=== PATIENT | male | born 1970 | race Caucasian/White ===

== ENCOUNTER 2018-01-02 21:38 | Emergency (ER) | payer BC ==
[~2018-01-02] VITALS: Ht 180.3 cm; Wt 111.1 kg
[~2018-01-02 21:38] MED LIST: Z.0.ADDERALL 30 MG30 PO; Z.0.KLONOPIN1 MG PO
--- OUTSIDE RECORDS SUMMARY | 2018-01-02 21:41 | XMS REPORT | Clinical Summary ---
Author Author [facility] Address Unknown Phone Unavailable Care Team Providers Care Exterminator Termite Name Role Phone Tom Begum MD PCP Allergies No Known Allergies Current Medications Prescription Sig. Disp. Refills Start End Date Status Date lisinopril Take 5 mg by mouth daily. Active (PRINIVIL,ZESTRIL) 5 mg tablet dextroamphetamine-ampheta Take 30 mg by mouth 3 Active mine (ADDERALL) 30 mg (three) times a day. tablet clonAZEPAM (KlonoPIN) 1 Take 1 mg by mouth 2 Active MG tablet (two) times a day as needed for seizures. Active Problems Problem Noted Date Contusion of left hand 09/12/2017 Extensor tendon rupture of hand 04/01/2017 Extensor tendon disruption 03/30/2017 Encounters Date Type Specialty Care Team Description 11/28/2017 Telephone Orthopedic Surgery Delaney Wylie MD 11/08/2017 Office Visit Orthopedic Surgery Delaney Wylie Contusion of left hand, MD Kavitha subsequent encounter (Primary Dx) 10/24/2017 Telephone Orthopedic Surgery Delaney Wylie MD 10/14/2017 Office Visit Orthopedic Surgery Delaney Wylie Contusion of left handKavitha MD subsequent encounter (Primary Dx) 09/09/2017 Office Visit Orthopedic Surgery Delaney Wylie Contusion of left handKavitha MD subsequent encounter (Primary Dx) 09/05/2017 Hospital Radiology Delaney Wylie Left hand pain Encounter MD Kavitha 08/24/2017 Office Visit Orthopedic Surgery Delaney Wylie Left hand pain (Primary MD Kavitha Dx) 08/24/2017 Procedure Pass Radiology 07/13/2017 Office Visit Orthopedic Surgery Delaney Wylie Rupture of extensor MD Kavitha tendon of left hand, initial encounter (Primary Dx) 05/31/2017 Office Visit Orthopedic Surgery Delaney Wylie Extensor tendon rupture MD Kavitha of hand, left, initial encounter (Primary Dx) 05/03/2017 Office Visit Orthopedic Surgery Delaney Wylie Extensor tendon rupture MD Kavitha of hand, left, initial encounter (Primary Dx) 05/03/2017 Orders Only Orthopedic Surgery ProviderMagalys MD 04/19/2017 Office Visit Orthopedic Surgery Delaney Wylie Extensor tendon rupture MD Kavitha of hand, left, initial encounter (Primary Dx) 04/05/2017 Hospital General Surgery Delaney Wylie Encounter MD Kavitha 04/05/2017 Anesthesia General Surgery Jonathan Jordan Event MD 04/05/2017 Procedure Pass General Surgery 04/05/2017 Surgery General Surgery Delaney Wylie REPAIR, TENDON, HAND, MD Kavitha EXTENSOR - LEFT SIDE 04/01/2017 Hospital Radiology Delaney Wylie Preop testing Encounter MD Kavitha 04/01/2017 Pre-Admit Pre-Admission Testing Delaney Wylie Preop testing (Primary Testing MD Kavitha Dx) Appointment 04/01/2017 Office Visit Orthopedic Surgery Delaney Wylie Extensor tendon rupture MD Kavitha of hand, left, initial encounter (Primary Dx) 03/30/2017 Office Visit Orthopedic Surgery Delaney Wylie Left hand pain (Primary MD Kavitha Dx); Nonintractable headache, unspecified chronicity pattern, unspecified headache type; Extensor tendon disruption after 01/01/2017 Family History Medical History Relation Name Comments No Known Problems Brother Arthritis Father Alzheimer's disease Mother Relation Name Status Comments Brother Alive Father Alive Mother Alive Social History Tobacco Use Types Packs/Day Years Used Date Never Smoker Smokeless Tobacco: Never Used Alcohol Use Drinks/Week oz/Week Comments Yes 2 Cans of Open can of beer take two drinks , pour out beer Sex Assigned at Date Recorded Not on file Last Filed Vital Signs Vital Sign Reading Time Taken Blood Pressure 115/70 04/05/2017 12:10 PM CDT Pulse 87 04/05/2017 12:10 PM CDT Temperature 36.5 C (97.7 F) 04/05/2017 12:05 PM CDT Respiratory Rate 13 04/05/2017 12:10 PM CDT Oxygen Saturation 95% 04/05/2017 12:10 PM CDT Inhaled Oxygen - - Concentration Weight 107 kg (235 lb 14.3 oz) 11/08/2017 2:20 PM [employer] Height 177.8 cm (5' 10") 11/08/2017 2:20 PM [employer] Body Mass Index 33.85 11/08/2017 2:20 PM [employer] Plan of Treatment Health Maintenance Due Date Last Done Comments INFLUENZA VACCINE 05/10/2017 Procedures Procedure Name Priority Date/Time Associated Diagnosis Comments CA AN ELECTIVE Routine 04/05/2017 SUPRAGLOTTIC AIRWAY 10:20 AM CDT Procedure Note - Anderson Gaines MD - 04/05/2017 10:20 AM CDT Airway Date/Time: 04/05/2017 10:18 AM Performed by: ANDERSON GAINES Authorized by: ANDERSON GAINES Location: OR Urgency: Elective Anesthesio logist: ANDERSON GAINES Performed by: anesthesisolange logismeg Preoxygena jaylin with 100% O2: Yes Mask Ventilatio n: Easy mask Final Airway Type: Supraglott ic airway Final LMA: Classic LMA Size: 5 Number of Attempts at Approach: 1 REPAIR, TENDON, HAND, 04/05/2017 Extensor tendon rupture EXTENSOR - LEFT SIDE 10:00 AM CDT of hand, left, initial encounter Special Needs PRE-OP VISIT ON 04-01-2017 AN ADD-ONBMI: 32.37HAND TABLE4.0 LOOPED SUPRAMID after 01/01/2017 Results * MRI Upper Extremity Wo Contrast Left (09/05/2017 8:51 AM) Only the most recent of 2 results within the time period is included. Specimen Performing Laboratory [facility] [id number] [place] [address] Narrative EXAMINATION:MRI UPPER EXTREMITY WO CONTRAST LEFT CLINICAL HISTORY: M79.642 Pain in left hand, Hand Pain, trauma to hand with many prior injuriesxrays unchanged from priorpt states unable to extend fingers COMPARISON:August 24, 2017 x-ray FINDINGS: 1.Tendons: There is irregularity of the fifth extensor tendon at the CMC joint where there has been prior surgery, but an obvious discontinuity or fluid collection is not identified. The ECU tendon attachment is also irregular, but probably intact. 2.Bone marrow: Pronounced degenerative narrowing and dorsal spurring involving the third carpal-metacarpal joint space with less pronounced changes in the second and fourth CMC joints. No bone marrow edema identified to suggest an acute osseous abnormality. 3.Soft tissue: Edema and heterogeneity of the abductor digiti minimi muscle suggest some chronic denervation changes. No other focal abnormality. 4.Carpal tunnel: Study is not centered for evaluation of the carpal tunnel. Projection of flexor tendons are and lateral to the location of the hamate are presumably related to prior operative changes in the flexor retinaculum. 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 Postoperative changes involving fifth extensor tendons, without obvious discontinuity. Denervation changes involving ADM muscle. [id number] Procedure Note Hm Interface, Radiology Results Incoming - 09/05/2017 9:07 AM [employer] EXAMINATION: MRI UPPER EXTREMITY WO CONTRAST LEFT CLINICAL HISTORY: M79.642 Pain in left hand, Hand Pain, trauma to hand with many prior injuries xrays unchanged from prior pt states unable to extend fingers COMPARISON: August 24, 2017 x-ray FINDINGS: 1. Tendons: There is irregularity of the fifth extensor tendon at the CMC joint where there has been prior surgery, but an obvious discontinuity or fluid collection is not identified. The ECU tendon attachment is also irregular, but probably intact. 2. Bone marrow: Pronounced degenerative narrowing and dorsal spurring involving the third carpal-metacarpal joint space with less pronounced changes in the second and fourth CMC joints. No bone marrow edema identified to suggest an acute osseous abnormality. 3. Soft tissue: Edema and heterogeneity of the abductor digiti minimi muscle suggest some chronic denervation changes. No other focal abnormality. 4. Carpal tunnel: Study is not centered for evaluation of the carpal tunnel. Projection of flexor tendons are and lateral to the location of the hamate are presumably related to prior operative changes in the flexor retinaculum. 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 Postoperative changes involving fifth extensor tendons, without obvious discontinuity. Denervation changes involving ADM muscle. [id number] * XR Hand 3+ Vw Left (08/24/2017 1:45 PM) Only the most recent of 2 results within the time period is included. Specimen Performing Laboratory [facility] [address] [place] [address] Narrative 3 views left hand: Changes consistent with prior injuries are present including ossific body at the base of the fifth metacarpal and abnormal alignment of mid and proximal carpal rows. No obvious new fractures. * XR Chest 2 Vw (04/01/2017 2:45 PM) Specimen Performing Laboratory [facility] [address] [place] [address] Narrative EXAMINATION:XR CHEST 2 VW CLINICAL HISTORY: Preoperative evaluation COMPARISON:None IMPRESSION: No active disease in the chest. Lungs are clear. There is linear atelectasis or scarring in the right midlung. Cardiomediastinal silhouette is within normal limits. No effusion or pneumothorax noted. Visualized osseous structures are intact. [facility]-[id number] Procedure Note Hm Interface, Radiology Results Incoming - 04/01/2017 3:32 PM CDT EXAMINATION: XR CHEST 2 VW CLINICAL HISTORY: Preoperative evaluation COMPARISON: None IMPRESSION: No active disease in the chest. Lungs are clear. There is linear atelectasis or scarring in the right midlung. Cardiomediastinal silhouette is within normal limits. No effusion or pneumothorax noted. Visualized osseous structures are intact. [facility]-[id number] * Estimated GFR (04/01/2017 1:54 PM) Component Value Ref Range GFR Non Af Amer 90 mL/min/1.73 m2 GFR Af Amer >90 mL/min/1.73 m2 Comment: Chronic kidney disease: <60 mL/min/1.73m2 Kidney failure: <15 mL/min/1.73m2 The estimated GFR is calculated from the IDMS-traceable Modification of Diet in Renal Disease Equation. The accuracy of the calculation is poor when the creatinine is normal. Calculated values >90 mL/min/1.73m2 are not reported. This equation has not been validated in children (<18 years), women, the elderly (>70 years), or ethnic groups other than Caucasians and Americans. Specimen Performing Laboratory Plasma specimen [facility] DEPARTMENT OF PATHOLOGY AND GENOMIC MEDICINE [address] [place] [address] * Urinalysis, automated with microscopy (04/01/2017 1:54 PM) Component Value Ref Range Color, UA Straw Appearance, UA Clear Specific gravity, UA 1.017 1.001 - 1.035 pH, UA 5.0 5.0 - 8.5 Protein, UA Negative Negative Glucose, UA Negative Negative Ketones, UA Negative Negative Bilirubin, UA Negative Negative Blood, UA Negative Negative Nitrite, UA Negative Negative Urobilinogen, UA Negative <2.0 Leukocyte esterase, UA Negative Negative WBC, UA 1 0 - 1 /HPF RBC, UA 3 (H) 0 - 1 /HPF Bacteria, UA None seen None seen Yeast, UA None seen Yeast with pseudohyphae, None seen UA Specimen Performing Laboratory Urine [facility] DEPARTMENT OF PATHOLOGY AND GENOMIC MEDICINE [address] [place] [address] * Partial thromboplastin time, activated (04/01/2017 1:54 PM) Component Value Ref Range PTT 26.0 23.0 - 36.0 sec Comment: PTT therapeutic range for unfractionated heparin is 61.0-112.0 seconds which corresponds to Anti-Xa 0.3-0.7 U/ml. Note: Change in Panic Value The PTT Panic Value is changing from 110 sec. to 100 sec. due to new instrumentation and reagents. Correlation studies have been performed to validate this result. Specimen Performing Laboratory Blood [facility] DEPARTMENT OF PATHOLOGY AND GENOMIC MEDICINE [address] [place] [address] * Prothrombin time with INR (04/01/2017 1:54 PM) Component Value Ref Range Prothrombin time 12.6 12.0 - 15.0 sec INR 0.94 0.92 - 1.12 Comment: For patients on anticoagulant therapy, reference ranges below: Indication: INR Value Treatment of Venous Thrombosis, 2.0-3.0 pulmonary emboli, or prophylaxis of a venous thrombosis, or systemic emboli. High dose, high risk patients 3.0-4.5 with mechanical valves. NOTE: INR values over 3.0 are sometimes associated with gastrointestinal hemorrhage, especially values over 4.0. Specimen Performing Laboratory Blood [facility] DEPARTMENT OF PATHOLOGY AND GENOMIC MEDICINE [address] [place] [address] * CBC with platelet and differential (04/01/2017 1:54 PM) Component Value Ref Range WBC 5.7 4.2 - 11.0 k/uL RBC 4.93 4.04 - 5.86 m/uL HGB 15.4 13.0 - 17.3 g/dL HCT 45.5 (H) 34.0 - 45.0 % MCV 92.3 80.0 - 98.0 fL MCH 31.2 27.0 - 34.0 pg MCHC 33.8 31.5 - 36.5 g/dL RDW - SD 46.5 37.0 - 51.0 fL MPV 10.8 (H) 7.4 - 10.4 fL Platelet count 224 150 - 400 k/uL Nucleated RBC 0.00 /100 WBC Neutrophils 62.9 36.0 - 66.0 % Lymphocytes 29.1 24.0 - 44.0 % Monocytes 6.4 (H) 0.0 - 6.0 % Eosinophils 1.0 0.0 - 6.0 % Basophils 0.3 0.0 - 1.2 % Immature granulocytes 0.3 0.0 - 1.0 % Specimen Performing Laboratory Blood [facility] DEPARTMENT OF PATHOLOGY AND GENOMIC MEDICINE [address] [place] [address] * Comprehensive metabolic panel (04/01/2017 1:54 PM) Component Value Ref Range Sodium 139 135 - 150 mEq/L Potassium 3.8 3.5 - 5.0 mEq/L Chloride 104 100 - 109 mEq/L CO2 26 24 - 32 mmol/L Anion gap 9 7 - 15 mEq/L Comment: Starting from January , anion gap calculation no longer incorporates potassium. Please note the change. BUN 15 7 - 18 mg/dL Creatinine 0.9 0.8 - 1.5 mg/dL Glucose 100 65 - 100 mg/dL Calcium 9.0 8.6 - 10.7 mg/dL Protein 7.4 6.3 - 8.2 g/dL Albumin 4.2 3.2 - 5.0 g/dL A/G ratio 1.3 0.7 - 3.8 Alkaline phosphatase 77 30 - 120 U/L AST 25 15 - 37 U/L ALT 65 30 - 65 U/L Total bilirubin 0.4 0.2 - 1.2 mg/dL Specimen Performing Laboratory Plasma specimen [facility] DEPARTMENT OF PATHOLOGY AND GENOMIC MEDICINE [address] [place] [address] * ECG Pre/Post Op (04/01/2017 1:45 PM) Component Value Ref Range Ventricular rate 86 Atrial rate 86 CA interval 148 QRSD interval 96 QT interval 360 QTC interval 430 P axis 1 40 QRS axis 1 -1 T wave axis 32 EKG impression Normal sinus rhythm-Normal ECG-No previous ECGs available- Specimen Performing Laboratory [facility] [address] [place] [address] after 01/01/2017 Insurance Payer Benefit Subscriber ID Type Phone Address Plan / Group WORKERS COMP MISC xxxxxxxxxxxx Workers WORKER'S Comp COMP Guarantor Name Account Relation to Date of Phone Billing Address Type Patient [id number] Workers Self 1970 Home: [address] [place] [address]
--- OUTSIDE RECORDS SUMMARY | 2018-01-02 21:41 | XMS REPORT ---
Author Author [facility] Address Unknown Phone Unavailable Care Team Providers Care Regroover Name Role Phone Unavailable Unavailable Problems This patient has no known problems. Allergies, Adverse Reactions, Alerts This patient has no known allergies or adverse reactions. Medications This patient has no known medications. Encounters Start Date/Time End Date/Time Encounter Type Admission Type Attending Clinicians [facility] Facility Care Department Encounter ID 2014-03-01 13:35:08 2014-03-01 13:35:08 Outpatient [facility] [id number]
[2018-01-02] MEDS ORDERED: CEFAZOLIN SOD 500 MG VIAL IM STA (21:48)
--- NOTE | 2018-01-02 22:46 | Diagnostic Imaging Report ---
FINGER LEFT Comparison: None Clinical history: \S\trauma, left 5th digit middle phalanx concern for fracture. \S\[id number] \[id number] Findings: Mild soft tissue swelling about the fifth digit. No acute fracture or dislocation. Impression: No acute bony abnormality Signed by: Dr Neris Patricia MD on 01/02/2018 10:43 PM
[2018-01-03] MEDS ORDERED: BUPIVACAINE HCL 0.25% 10ML MPF VIAL INJ ONE (00:15)
[2018-01-03] MEDS: TETANUS/DIPHTHERIA TOX ADULT 0.5 ML SYR IM ONE (00:46)
== END 2018-01-03 02:13 | disposition home or self-care (01) ==
LOC: ER 21:38
DX: S67.197A Crushing injury of left little finger, initial encounter (principal); S61.217A Laceration without foreign body of left little finger without damage to nail, initial encounter; Z28.21 Immunization not carried out because of patient refusal; W22.8XXA Striking against or struck by other objects, initial encounter; Y93.89 Activity, other specified
CPT/HCPCS: 13131; 73140; 99284; J0690; 90714

== ENCOUNTER 2020-03-06 12:05 | Outpatient (RCR) | payer OTHER | END 2020-03-09 | LOC: PT 12:05 | PROVIDERS: ATTEND Neurological Surgery | DX: G93.0 Cerebral cysts (principal) ==

== ENCOUNTER 2020-03-10 14:51 | Outpatient (RCR) | payer OTHER | END 2020-04-08 | LOC: PT 14:51 | PROVIDERS: ATTEND Neurological Surgery | DX: G93.0 Cerebral cysts (principal) ==